=== PATIENT | male | born 1960 | race Caucasian/White ===

== ENCOUNTER → 2019-01-15 | Outpatient (CLI) | payer OTHER | END | disposition home or self-care (01) | LOC: CFH 08:15 | PROVIDERS: ATTEND Internal Medicine Cardiovascular Disease | DX: I35.1 Nonrheumatic aortic (valve) insufficiency (principal); I25.89 Other forms of chronic ischemic heart disease; I65.23 Occlusion and stenosis of bilateral carotid arteries; I11.9 Hypertensive heart disease without heart failure; E11.9 Type 2 diabetes mellitus without complications | CPT/HCPCS: 0399T; 78452; 93017; 93306; 93880; A9502 ==

== ENCOUNTER 2019-03-17 11:49 | Day surgery (SDC) | payer OTHER, MEDICAID ==
[~2019-03-17] VITALS: Ht 165.1 cm; Wt 75.0 kg
[2019-03-17 13:54] VITALS: BP 134/70
== END 2019-03-17 20:41 | disposition home or self-care (01) ==
LOC: CACL 11:49 → 5SO 17:33 → CACL 20:41
PROVIDERS: ATTEND Internal Medicine Cardiovascular Disease
DX: I25.119 Atherosclerotic heart disease of native coronary artery with unspecified angina pectoris (principal); I77.1 Stricture of artery; I35.0 Nonrheumatic aortic (valve) stenosis; I10 Essential (primary) hypertension; E11.9 Type 2 diabetes mellitus without complications; E78.2 Mixed hyperlipidemia; Z79.4 Long term (current) use of insulin; Z79.899 Other long term (current) drug therapy; Z87.891 Personal history of nicotine dependence
CPT/HCPCS: 36415; 80048; 80061; 85025; 85610; 93458; 99156; 99157; C1887; C1894; J1644; J2250; J3010; Q9967; G0378